=== PATIENT | female | born 1995 | race Caucasian/White ===

== ENCOUNTER 2016-05-16 16:43 | Emergency (ER) | payer MEDICAID ==
--- NOTE | 2016-05-16 16:56 | EDPHY ---
H & P Stated Complaint: cough n/v for 5 days Time Seen by Provider: 05/16/16 16:55 - Personal History LMP (Females 10-55): 1-7 Days Ago Current Tetanus/Diphtheria Vaccine: Unsure Current Tetanus Diphtheria and Acellular Pertussis (TDAP): Unsure - Medical/Surgical History Hx Asthma: No Hx Chronic Respiratory Disease: No Hx Diabetes: No Hx Cardiac Disease: No Hx Renal Disease: No Hx Cirrhosis: No Hx Alcoholism: Yes Hx HIV/AIDS: No Hx Splenectomy or Spleen Trauma: No Other PMH: PTSD, bipolar, depression, alcohol syndrome, asthma - Social History Smoking Status: Former smoker Constitutional: Initial Vital Signs Temperature (C) 36.3 C 05/16/16 16:46 Heart Rate 97 05/16/16 16:46 Respiratory Rate 16 05/16/16 16:46 Blood Pressure 115/80 05/16/16 16:46 O2 Sat (%) 100 05/16/16 16:46 O2 Delivery Mode Room Air Allergies/Adverse Reactions: No Known Allergies Allergy (Verified 04/27/16 23:41) Home Medications: Medication Instructions Recorded Amoxicillin Trihydrate 500 mg PO Q8 #30 cap 01/23/16 [Amoxicillin 500mg capsule] Ibuprofen 01/23/16 Tylenol 01/23/16 Hydrocodone/APAP 5/325 [[place] 1 - 2 tab PO Q4H PRN #7 tab 04/28/16 5/325] AZITHROMYCIN [Z-PACK] 250 mg PO DAILY #1 packet 05/16/16 Albuterol [Proventil Inhaler] 1 - 2 puffs IH Q4 #1 mdi 05/16/16 HYDROcodone/HOMATROPINE HYCODA 1 tsp PO Q4-6PRN PRN #120 ml 05/16/16 [Hycodan Syrup (RX)] Medical Decision Making ED Course/Re-evaluation: CHIEF COMPLAINT: Cough. HISTORY OF PRESENT ILLNESS: The patient is a 20-year-old female who presents with 4 days of cough and rhinorrhea. She reports that this has been causing her difficulty sleeping over this period of time. The cough is worsened by lying flat. She denies fever, vomiting, or other complaints. REVIEW OF SYSTEMS: A 10 point review of systems was performed and is negative with the exception of the elements mentioned in the history of present illness. PHYSICAL EXAM: HR, BP, O2 Sat, RR. Temp noted General Appearance: Alert, well hydrated, appropriate, and non-toxic appearing. Head: Atraumatic without scalp tenderness or obvious injury Eyes: Pupils equal, round, reactive to light and accommodation, EOMI, no trauma , no injection. Ears: Clear bilaterally, no perforation, normal landmarks Nose: Atraumatic, no rhinorrhea, clear. Throat: There is no erythema or exudates, no lesions, normal tonsils, mucus membranes moist. Neck: Supple, 2+ carotid upstroke, nontender, no lymphadenopathy. Respiratory: No retractions, no distress, no wheezes, and no accessory muscle use. Lungs are clear to auscultation bilaterally. Cardiovascular: Regular rate and rhythm, no murmurs, rubs, or gallops. Bilateral carotid, radial, dorsalis pedis, and posterior tibial pulses intact. Good capillary refill all extremities. Gastrointestinal: Abdomen is soft, nontender, non-distended, no masses, no rebound, no guarding, no peritoneal signs. Musculoskeletal: Normal active ROM of all extremities, atraumatic. Neurological: Alert, appropriate, and interactive. The patient has normal DTRs and non-focal cranial nerves, motor, sensory, and cerebellar exam. Skin: No rashes, good turgor, no nodules on palpation. Past medical history:Psychiatric. Family history:Non-contributory. Social history:Here alone. DIFFERENTIAL DIAGNOSIS: The differential diagnosis for the patient includes but is not limited to bronchitis, viral syndrome, upper respiratory infection, influenza, pneumonia. MEDICAL DECISION MAKING: this is a 20 y/o female presenting with 4 days of cough that has been keeping her awake at night. She is afebrile and denies other symptoms besides intermittent rhinorrhea. On exam I have high suspicion for bronchitis. She will be given a dose of oral Azithromycin here and discharged with a prescription. I answered all of her questions. She was given warnings and return precautions prior to discharge. She is comfortable with the plan. Departure - Departure Disposition: Home, Routine, Self-Care Clinical Impression: Bronchitis Condition: Good Instructions: Acute Bronchitis (ED), Oxycodone/Acetaminophen (By mouth) Additional Instructions: Take Azithromycin as prescribed. Take Hycodan syrup as instructed for cough. Follow up with your primary care provider in the next 2-3 days if symptoms are not improving. Return to the emergency department for serious worsening of condition. Referrals: [place],. [Primary Care Provider] - As per Instructions Prescriptions: HYDROcodone/HOMATROPINE HYCODA [Hycodan Syrup (RX)] 1 tsp PO Q4-6PRN PRN #120 ml PRN Reason: Cough, Moderate Albuterol [Proventil Inhaler] 1 - 2 puffs IH Q4 #1 mdi AZITHROMYCIN [Z-PACK] 250 mg PO DAILY #1 packet Report Scribed for: Ramon Marrero Report Scribed by: Bryce Rao Date of Report: 05/16/16 Time of Report: 17:07
[2016-05-16] MEDS ORDERED: AZITHROMYCIN 250 MG TAB PO ONE (17:08)
[2016-05-16] MEDS ORDERED: OXYCODONE/APAP 5/325MG PREPACK#4 BTL TAKEHOME ONE (17:08)
[2016-05-16 17:18] VITALS: BP 128/78; PULSE 90; RESP 14; TEMP 98.4; O2SAT 96
== END 2016-05-16 17:17 | disposition home or self-care (01) ==
DX: J20.9 Acute bronchitis, unspecified (principal); J45.909 Unspecified asthma, uncomplicated; Z87.891 Personal history of nicotine dependence

== ENCOUNTER 2016-05-27 09:08 | Emergency (ER) | payer MEDICAID ==
[2016-05-27 09:14] VITALS: BP 122/66; RESP 18; TEMP 98.2
[2016-05-27] MEDS ORDERED: IPRATROPIUM/ALBUTEROL 3 ML DEYVIAL IH ONE (09:23)
--- NOTE | 2016-05-27 09:43 | EDPHY ---
H & P Time Seen by Provider: 05/27/16 09:16 HPI/ROS: CHIEF COMPLAINT: Cough x3 days HISTORY OF PRESENT ILLNESS: 20-year-old female nonsmoker, no exogenous estrogen use, complaining of productive cough for the past 2 days. She was seen in the ER 11 days ago for same complaint, was given prescription for azithromycin for which she took day 1 only an lost a prescription. She has reproducible chest pain with coughing however otherwise no chest pain with deep inspiration or with palpation. No dyspnea. No back pain. No abdominal pain. No history of thromboembolic disorder. No immobilization. No trauma history REVIEW OF SYSTEMS: A ten point review of systems was performed and is negative with the exception of the items mentioned in the HPI PAST MEDICAL & SURGICAL HISTORY: Bipolar disorder SOCIAL HISTORY: nontobacco smoker PHYSICAL EXAM (Prior to examination, patient consented to physical exam, hands were washed and my usual and customary physical exam procedures followed) 1) GENERAL: Well-developed, well-nourished, alert and oriented. Appears to be in no acute distress. 2) HEAD: Normocephalic, atraumatic 3) HEENT: Pupils equal, round, reactive to light bilaterally. Sclera anicteric. Nasopharynx, oropharynx, clear, no lesions. No tonsillar enlargement or exudate Ears bilaterally with normal tympanic membranes. 4) NECK: Full range of motion, no meningeal signs. 5) LUNGS: Clear auscultation bilaterally, no wheezes, no rhonchi, no retractions. 6) HEART: Regular rate and rhythm, no murmur, no heave, no gallop. 7) ABDOMEN: No guarding, no rebound, no focal tenderness, 8) MUSCULOSKELETAL: No peripheral edema or discoloration. 9) BACK: No CVA tenderness. 10) SKIN: No rash, no petechiae. DIFFERENTIAL DIAGNOSIS: in no particular order including but not limited to pneumonia, bronchitis, pulmonary embolus Smoking Status: Former smoker Constitutional: Initial Vital Signs Temperature (C) 36.8 C 05/27/16 09:11 Heart Rate 77 05/27/16 09:11 Respiratory Rate 18 05/27/16 09:11 Blood Pressure 122/66 H 05/27/16 09:11 O2 Sat (%) 96 05/27/16 09:11 O2 Delivery Mode Room Air Allergies/Adverse Reactions: No Known Allergies Allergy (Verified 05/27/16 09:10) Home Medications: Medication Instructions Recorded AZITHROMYCIN [Z-PACK] 500 mg PO DAILY #1 packet 05/27/16 Albuterol [Proventil Inhaler HFA 1 - 2 puffs IH Q4PRN PRN #1 mdi 05/27/16 (*)] Benzonatate [Tessalon Pearles (RX)] 200 mg PO TID PRN #15 cap 05/27/16 MDM/Departure - MDM Diagnostics: PA and Lateral Chest May 27, 2016 Indication: Chest pain. Cough. Findings: The lungs are well aerated and clear. No pneumothorax, consolidation , or effusion. Heart size normal. Impression: Normal. No pneumonia or pneumothorax. Dictated By: Mamadou Amezcua MD Images reviewed by myself Medications Given: Discontinued Medications Albuterol/Ipratropium (Duoneb) 3 ml IH EDNOW ONE Stop: 05/27/16 09:24 Last Admin: 05/27/16 09:29 Dose: 3 ml ED Course/Re-evaluation: Re-evaluation with serial exams. She was given DuoNeb treatment and notes significant subjective improvement. She remains maintaining normal saturations. Doubt pulmonary embolus. Negative perc score. I recommended treatment with azithromycin recommend she take the entire course as she previously took only day 1 last time. The usual customary pulmonary precautions provided. - Depart Disposition: Home, Routine, Self-Care Clinical Impression: Bronchitis Acute bronchitis Qualifiers: Bronchitis organism: other organism Qualifier Code: (J20.8) Acute bronchitis due to other specified organisms Condition: Good Additional Instructions: Take her antibiotic as directed, until finished Prescriptions: Albuterol [Proventil Inhaler HFA (*)] 1 - 2 puffs IH Q4PRN PRN #1 mdi PRN Reason: Cough, Moderate Benzonatate [Tessalon Pearles (RX)] 200 mg PO TID PRN #15 cap PRN Reason: Cough, Moderate AZITHROMYCIN [Z-PACK] 500 mg PO DAILY #1 packet Referrals: [facility] [Outside] - 1-2 days without fail
--- NOTE | 2016-05-27 09:48 | DX ---
PA and Lateral Chest May 27, 2016 Indication: Chest pain. Cough. Findings: The lungs are well aerated and clear. No pneumothorax, consolidation, or effusion. Heart si ze normal. Impression: Normal. No pneumonia or pneumothorax.
[2016-05-27 10:14] VITALS: PULSE 74; O2SAT 99
== END 2016-05-27 10:05 | disposition home or self-care (01) ==
DX: J20.8 Acute bronchitis due to other specified organisms (principal); Z87.891 Personal history of nicotine dependence